=== PATIENT | male | born 1985 | race African-American/Black ===

== ENCOUNTER 2019-05-30 23:35 | Emergency (ER) | payer SELFPAY ==
[~2019-05-30] VITALS: Ht 182.9 cm; Wt 81.6 kg
--- NOTE | 2019-05-30 23:45 | NUR ---
ED Nurse Note: pt walked in c/o left side chest pain x 4-5 hrs, pt denies any recent injuries but reports he exercises regularly, denies n/v nor sob, pt AA&ox4, gcs=15, skin warm and dry, resp even and unlabored on RA, ambulatory w/ steady gait, VSS, NSR on school bus monitor and EKG, will cont monitor.
[2019-05-31 00:10] VITALS: BP 138/86
[2019-05-31] MEDS: oxyCODONE HCL/Acetaminophen 5/325mg ORAL ONE ×2 (00:31→00:34)
--- NOTE | 2019-05-31 00:34 | NUR ---
ED Nurse Note: pt refused pain medication, pt states pain is tolerable, ermd notified. medication returned.
--- NOTE | 2019-05-31 00:53 | Emergency Room Report ---
History of Present Illness General Chief Complaint: Chest Pain Source: Patient Present Illness HPI 33-year-old male presents with left-sided chest pain in the muscle, aggravated with touching it alleviated by not touching it, sharp/achy, mild severity, no dyspnea on exertion no shortness of breath, patient states he did workout earlier today. Allergies: Coded Allergies: No Known Allergies (Unverified , 05/30/19) Patient History Past Medical History: see triage record Reviewed Nursing Documentation: PMH: Agreed; PSxH: Agreed Nursing Documentation-PMH Past Medical History: No Stated History Review of Systems All Other Systems: negative except mentioned in HPI Physical Exam Vital Signs Date Time Temp Pulse Resp B/P (MAP) Pulse Ox O2 Delivery O2 Flow Rate FiO2 05/30/19 23:47 98.4 83 16 143/89 (107) 100 Room Air Sp02 EP Interpretation: reviewed, normal General Appearance: well appearing, no apparent distress, alert Head: normocephalic, atraumatic Eyes: bilateral eye PERRL, bilateral eye EOMI ENT: uvula midline, moist mucus membranes Neck: supple, thyroid normal, supple/symm/no masses Respiratory: lungs clear, no respiratory distress, no retraction, no accessory muscle use Cardiovascular #1: normal peripheral pulses, regular rate, rhythm, no edema, no gallop, no murmur, other - Chest wall: Tenderness to palpation medial aspect of chest, in between the ribs reproduces complaint Gastrointestinal: non tender, soft, no guarding, no rebound Musculoskeletal: normal inspection Neurologic: alert, oriented x3 Psychiatric: mood/affect normal Skin: no rash, warm/dry Medical Decision Making Diagnostic Impression: Primary Impression: Costochondral chest pain Additional Impression: Costochondritis, acute ER Course Patient most likely costochondritis, PE RC negative, EKG negative, chest x-ray negative no evidence of pneumothorax. EKG Diagnostic Results EKG Time: 23:43 EP Interpretation: NSR, rate 83, QTc 420, no acute ST elevations, normal axis Rate: normal Rhythm: NSR ST Segments: no acute changes Chest X-Ray Diagnostic Results Chest X-Ray Diagnostic Results : Chest X-Ray Ordered: Yes # of Views/Limited/Complete: 1 View Indication: Chest Pain EP Interpretation: Yes Interpretation: no consolidation, no effusion, no pneumothorax, no acute cardiopulmonary disease Impression: No acute disease Electronically Signed by: Haider Potts MD Last Vital Signs Date Time Temp Pulse Resp B/P (MAP) Pulse Ox O2 Delivery O2 Flow Rate FiO2 05/31/19 00:10 98.4 85 16 138/86 100 Room Air Disposition: HOME, SELF-CARE Condition: Stable Referrals: NOT CHOSEN IPA/,REFERRING (PCP) Patient Instructions: Costochondritis, Cpal-hn-Furl, Nonspecific Chest Pain Additional Instructions: The patient was provided with discharge instructions, notified to follow-up with a primary care doctor and or specialist in the next 24-48 hours, and to return to the ED if they have worsening of their symptoms. Please note that this report is being documented using [employer] technology. This can lead to erroneous entry secondary to incorrect interpretation by the dictating instrument. Haider Potts MD May 31, 2019 00:53
--- NOTE | 2019-05-31 01:02 | NUR ---
ED Nurse Note: pt cleared to be d/c per ERMD, pt discharge and aftercare instruction provided, pt education done via discussion and handout, pt advised to follow up with pcp or return to ed if changes in condition, vss, ambulatory w/steady gait, left w/ all belongings.
[2019-05-31 01:03] VITALS: BP 131/80
--- NOTE | 2019-05-31 01:55 | Diagnostic Imaging Report ---
EXAM: XR Chest, 1 View CLINICAL HISTORY: CP TECHNIQUE: Frontal view of the chest. COMPARISON: No relevant prior studies available. FINDINGS: Lungs: Unremarkable. No consolidation. Pleural space: Unremarkable. No pneumothorax. Heart: Unremarkable. No cardiomegaly. Mediastinum: Unremarkable. Bones/joints: Unremarkable. IMPRESSION: Unremarkable chest x-ray.
== END 2019-05-31 01:03 | disposition home or self-care (01) ==
LOC: EMR 23:53
DX: M94.0 Chondrocostal junction syndrome [Tietze] (principal)
CPT/HCPCS: 71045; 99283